=== PATIENT | female | born 1970 | race Caucasian/White ===

== ENCOUNTER 2017-01-23 13:10 | Emergency (ER) | payer OTHER ==
[2017-01-23 14:01] LABS: Hematocrit 44.1 % (37.0-47.0); Hemoglobin 14.4 gm/dL (12.5-16.0); Mean Cell Volume 87.2 fl (78-100); Mean Corpuscular Hemoglobin 28.5 pg (27-31); Mean Corpuscular Hgb Conc 32.7 g/dl (32-36); Neutrophil # 5.3 K/mm3 (1.3-6.0); Neutrophil % 55.1 % (42-75.0); Platelet Count 172 K/mm3 (150-450); Red Blood Count 5.06 M/mm3 (4.2-5.4); Red Cell Distribution Width 12.9 % (11.5-14.0); White Blood Count 9.7 K/mm3 (4.0-10.5)
[2017-01-23 14:07] LABS: Urine Bilirubin Negative (NEGATIVE); Urine Blood 50 /ul (NEGATIVE); Urine Ketone Negative (NEGATIVE); Urine Nitrite Negative (NEGATIVE); Urine Protein Negative (NEGATIVE); Urine Specific Gravity 1.015 SP.GR. (1.005-1.010); Urine Urobilinogen Normal (NORMAL); Urine pH 5.5 pH (5.0-7.0)
[2017-01-23] MEDS ORDERED: LIDOCAINE HCL 20 ML UDC PO ONE (14:12)
[2017-01-23] MEDS ORDERED: SUCRALFATE 1 G/10 ML UDC PO ONE (14:12)
[2017-01-23] MEDS ORDERED: MAG HYDROX/ALUMINUM HYD/SIMETH 30 ML UDC PO ONE (14:12)
[2017-01-23 14:13] LABS: Albumin * 3.5 gm/dl (3.4-5.0); Anion Gap 15.3 mmol/L (6.8-13.8); BUN/Creatinine Ratio 13.8 (9.0-21.6); Bilirubin, Total 0.2 mg/dL (0.0-1.1); Ca. Corrected For Albumin 8.1 mg/dL (8.4-10.2); Carbon Dioxide 22.7 mmol/L (24-32.6); Total Protein 6.7 gm/dL (6.2-8.2)
--- OUTSIDE RECORDS SUMMARY | 2017-01-23 14:13 | XMS REPORT | Continuity of Care Document ---
:1970 Author Organization [facility] [place] [address] Care Team Providers Name Role Phone Unavailable Primary Care Provider Unavailable Source Comments This disclosure is being made pursuant to the [employer] program and maynot contain all information available regarding this patient.[facility] Active Allergies and Adverse Reactions Not on File Current Medications Be aware that medications may not be up to date as of this document. Alwaysverify current medications with the patient. Not on file Active Problems Not on file Social History Tobacco Use Types Packs/Day Years Used Date Never Assessed Plan of Care Health Maintenance Due Date Last Done Comments Retired-Pertussis Vaccine Adult 1988 Retired-Tetanus Vaccine Adult 1988 Pap Smear 1990 Mammogram 2009 Retired-INFLUENZA VACCINE 07/25/2015 Results from Last 3 Months Not on file
--- OUTSIDE RECORDS SUMMARY | 2017-01-23 14:13 | XMS REPORT | Continuity of Care Document ---
:1970 Author Organization [facility] ([facility]) [place] [address] Phone [phone] Care Team Providers Name Role Phone Erna Bettencourt Primary Care Provider [phone] Source Comments This disclosure is being made pursuant to the Care Everywhere program, applicable federal and state laws, and may not contain all informaitonavailable regarding this patient.[facility] ([facility]) Active Allergies and Adverse Reactions Allergen Noted Date Severity Reactions Comments Aspirin Stomach Pain Codeine Stomach Pain Tylelnol # 3 Ibuprofen Stomach Pain Current Medications Not on file Active Problems Problem Noted Date Other dyspnea and respiratory abnormality 07/29/2007 Other convulsions 12/17/2006 Disturbance of skin sensation 12/17/2006 Dizziness and giddiness 09/29/2006 Nonspecific abnormal electrocardiogram (ECG) (EKG) 09/29/2006 Syncope and collapse 09/26/2006 Immunizations Name Dates Previously Given Next Due Influenza, unspecified 07/21/2007 Pneumococcal, unspecified 07/21/2007 Social History Tobacco Use Types Packs/Day Years Used Date Never Assessed Last Filed Vital Signs Vital Sign Reading Time Taken Blood Pressure 118/65 07/29/2007 8:00 AM CDT Pulse 89 07/29/2007 8:00 AM CDT Temperature 36.6 C (97.88 F) 07/29/2007 8:00 AM CDT Respiratory Rate 16 07/29/2007 8:00 AM CDT Height 1.71 m (5' 7.32") 07/21/2007 11:18 AM CDT Weight 82.555 kg (182 lb) 07/21/2007 11:18 AM CDT Body Mass Index 28.23 07/21/2007 11:18 AM CDT Oxygen Saturation - - Plan of Care Health Maintenance Due Date Last Done Comments Hepatitis B Vaccine (1 of 3 - Primary Series) 1970 Tdap Vaccine 1980 Lipid Disorder Screening 1987 MMR Vaccine 1987 Td Vaccine 1987 Cervical Cancer Screening 1999 Mammogram 2009 Influenza Vaccine: Seasonal (#1) 06/24/2016 07/21/2007 Results from Last 3 Months Not on file
[2017-01-23 14:16] LABS: Urine Appearance Slightly Cloudy; Urine Bacteria 1+; Urine Color Yellow; Urine WBC 0-5 /hpf (0-5)
--- NOTE | 2017-01-23 14:21 | ERNOTE ---
Abdominal HPI - Narrative Date of Service: 01/23/17 - General Chief Complaint: Abdominal Pain Time Seen by Provider: 01/23/17 13:54 Source: patient Exam Limitations: no limitations - Immun/Allergies/Home Medications Immunizatons: IMMUNIZATION HX Immunizations Up to Date Yes History of Influenza Vaccine No Hx Pneumococcal Vaccination Yes Allergies/Adverse Reactions: Allergies acetaminophen [From Darvocet-N 100] Adverse Reaction (Mild, Verified 04/29/16 10 :18) Itching aspirin Adverse Reaction (Mild, Verified 04/29/16 10:18) UPSET STOMACH codeine [Codeine] Adverse Reaction (Mild, Verified 04/29/16 10:18) UPSET STOMACH divalproex sodium [From Depakote] Adverse Reaction (Mild, Verified 04/29/16 10: 18) UPSET STOMACH ibuprofen Adverse Reaction (Mild, Verified 04/29/16 10:18) UPSET STOMACH levetiracetam [From Keppra] Adverse Reaction (Mild, Verified 04/29/16 10:18) UPSET STOMACH propoxyphene napsylate [From Darvocet-N 100] Adverse Reaction (Mild, Verified 10:18) Itching topiramate [From Topamax] Adverse Reaction (Mild, Verified 04/29/16 10:18) UPSET STOMACH Home Medications: HOME MEDICATIONS Atenolol [Tenormin] 50 mg PO HS 01/08/14 [Last Taken 07/26/15] Escitalopram Oxalate [Lexapro] 40 mg PO HS 01/08/14 [Last Taken 08/28/14] ALPRAZolam [Xanax] 1 mg PO TID 07/04/14 [Last Taken 08/29/14] Naproxen Sodium [Aleve] 220 mg PO Q12H PRN 07/04/14 [Last Taken 08/29/14] Albuterol Sulfate [Proair Hfa] 1 puff IH Q4H PRN 07/24/15 [Last Taken Unknown] Dextroamphetamine/Amphetamine [Amphetamine Salts 30 mg Tab] 30 mg PO BID [Last Taken Unknown] Amitriptyline HCl [Elavil] 50 mg PO HS 04/26/16 [Last Taken Unknown] Aripiprazole [Abilify] 20 mg PO DAILY 04/26/16 [Last Taken Unknown] Calcium Carbonate [Tums] 300 mg PO PRN PRN 04/26/16 [Last Taken Unknown] tiZANidine HCL [Zanaflex] 4 mg PO Q8H PRN 04/26/16 [Last Taken Unknown] Sulfamethoxazole/Trimethoprim [Bactrim Ds] 1 tab PO BID #28 tab 01/23/17 [Last Taken Unknown] Tamsulosin HCl [Flomax] 0.4 mg PO DAILY@1800 #30 cap 01/23/17 [Last Taken Unknown] - History of Present Illness Narrative: Pt. comes in with c/o BUQ pain for four days without relief despite taking Tylenol. Pt. denies any SOB, CP, NVD, dysuria, or alleviating factors. Pt. does state that movement and eating exacerbates the pain. Pt. do3es state rene she has headaches and has been depressed since her brother two weeks ago. Review of Systems - Review of Systems Constitutional: Present: no symptoms reported. Absent: fever, chills, weakness , fatigue, malaise EYE: Present: no symptoms reported ENT: Present: no symptoms reported Respiratory: Present: no symptoms reported. Absent: shortness of breath, cough , wheezing Cardiology: Present: no symptoms reported. Absent: chest pain, palpitations, edema Gastrointestinal/Abdominal: Present: abdominal pain. Absent: nausea, vomiting, diarrhea Genitourinary: Present: no symptoms reported. Absent: frequency, pain, dysuria , decreased urinary output, discharge Musculoskeletal: Present: no symptoms reported. Absent: back pain, joint pain Skin: Present: no symptoms reported. Absent: rash, change in color Neurological: Present: headache. Absent: dizziness/light-headedness, numbness, tingling All Other Systems: All systems neg except as marked - Patient's Past Medical History Patient History - Medical: GERD, Hypothyroidism Patient History - Cardiac/Respiratory: Asthma, COPD, CVA/Stroke, Hypertension Patient History - Surgical Procedures: Cholecystectomy, Colonoscopy, EGD, Hysterectomy, Tubal Ligation, Other Patient History - Other: None - Social History Living Situations: alone Abuse History: No History of abuse Psych History: Hx of Anxiety, Hx of Depression Smoking Status: Current every day smoker Have you smoked in the past 12 months: Yes Do you dip or chew tobacco: No Alcohol Use: none Drug Use: other - Immunizations Immunizations Up to Date: Yes Hx Pneumococcal Vaccination: Yes History of Influenza Vaccine: No Physical Exam - Physical Exam General Appearance: Present: wd/wn, alert, no apparent distress Eye Exam: Normal inspection: bilateral, PERRL: bilateral, EOMI: bilateral Ears, Nose, Throat: Present: normal ENT inspection, normal pharynx Neck: Present: normal inspection, nontender. Absent: lymphadenopathy (R), lymphadenopathy (L) Respiratory: Present: no respiratory distress, normal breath sounds, no accessory muscle use, chest nontender, lungs clear Cardiovascular/Chest: Present: regular rate, rhythm, no murmur, normal peripheral pulses Gastrointestinal/Abdominal: Present: normal bowel sounds, nondistended, soft, no organomegaly, tenderness - LUQ Back Exam: Present: normal inspection, normal range of motion, no CVA tenderness , no vertebral tenderness Extremity Exam: Present: normal inspection, non-tender, normal range of motion, no edema Neurological Exam: Present: alert, oriented, normal mood/affect, no motor/ sensory deficits Skin Exam: Present: normal color, warm/dry. Absent: pallor, skin rash ED Progress - Date and Time Seen: Date and Time: 01/23/17 16:[address] Capps and will send pt. home with strainer and flomax and abx and have her follow up with them if no improvement by friday. - Results and Orders Patient's Lab Results:: I have reviewed the patient's lab results. Results and Orders: hematuria - Vital Signs Patient's Vital Signs:: I have reviewed the patient's vital signs. Vital Signs: Vital Signs 01/23/17 13:24 Temperature 35.8 C L Pulse Rate 82 Respiratory 18 Rate Blood Pressure 152/101 O2 Sat by Pulse 99 Oximetry - CT/Ultrasound CT/Ultrasound Narrative: CT abd positive for 1mm R UVJ stone with R ureterectasis and fat stranding - Progress/Reassessment Chief Complaint: Abdominal Pain Progress:: Improved Departure - Departure Clinical Impression: Right ureteral stone, Ureterectasis, Ureteritis Disposition: Home self-care Condition: Good Instructions: Kidney Stones, [id number] Additional Instructions: Please follow up with Dr Linda by calling office on Friday if not improved. Strain all urine Referrals: Erna Bettencourt MD [Primary Care Provider] - Prescriptions: Sulfamethoxazole/Trimethoprim [Bactrim Ds] 1 tab PO BID #28 tab Tamsulosin HCl [Flomax] 0.4 mg PO DAILY@1800 #30 cap
[2017-01-23 14:25] VITALS: BP 145/94
[2017-01-23] MEDS ORDERED: KETOROLAC TROMETHAMINE 60 MG/2 ML VIAL IM ONE ×2 (15:21→15:49)
== END 2017-01-23 17:01 | disposition home or self-care (01) ==
LOC: ER 13:10
DX: N20.1 Calculus of ureter (principal); N13.4 Hydroureter

== ENCOUNTER 2017-01-31 13:08 | Day surgery (SDC) | payer OTHER ==
[~2017-01-31 13:08] MED LIST: KETOROLAC TROMETHAMINE 15 MG/ML VIAL IV PRN; ONDANSETRON HCL/PF 2 MG/ML VIAL IV PRN; OXYBUTYNIN CHLORIDE 5 MG TABLET PO PRN; RINGERS SOLUTION,LACTATED 1,000 ML IV PRN; oxyCODONE HCL/ACETAMINOPHEN 1 TAB TABLET PO PRN
--- OUTSIDE RECORDS SUMMARY | 2017-01-31 13:12 | XMS REPORT | Continuity of Care Document ---
:1970 Author Organization [facility] [place] [address] Care Team Providers Name Role Phone Unavailable Primary Care Provider Unavailable Source Comments This disclosure is being made pursuant to the [employer] program and maynot contain all information available regarding this patient.[facility] Active Allergies and Adverse Reactions Not on [...]
--- OUTSIDE RECORDS SUMMARY | 2017-01-31 13:13 | XMS REPORT | Continuity of Care Document ---
:1970 Author Organization [facility] ([facility]) Address [place] [address] Phone [phone] Care Team Providers Name Role Phone Erna Bettencourt Primary Care Provider [phone] Source Comments This disclosure is being made pursuant to the Care Everywhere program, applicable federal and state laws, and may not contain all informaitonavailable regarding this patient.[facility] ([facility]) Active Allergies and Adverse Reactions Allergen Noted [...]
[2017-01-31] MEDS ORDERED: RINGERS SOLUTION,LACTATED 750 ML IV ONE (14:20)
[2017-01-31] MEDS: ceFAZolin SODIUM 2 GM in DEXTROSE 5 % IN WATER 50 ML IV PRN ×4 (14:30→14:46)
[2017-01-31 16:00] VITALS: BP 138/89
== END 2017-01-31 13:09 | disposition home or self-care (01) ==
LOC: AMB 13:08
PROVIDERS: ATTEND Urology
PROC: BT14ZZZ Fluoroscopy of Kidneys, Ureters and Bladder (ICD-10-PCS; principal; 2017-01-31 14:20)
DX: R10.12 Left upper quadrant pain (principal); R31.29 Other microscopic hematuria; K27.9 Peptic ulcer, site unspecified, unspecified as acute or chronic, without hemorrhage or perforation; F17.210 Nicotine dependence, cigarettes, uncomplicated; Z68.38 Body mass index [BMI] 38.0-38.9, adult